=== PATIENT | male | born 2000 | race Caucasian/White ===

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

== ENCOUNTER 2019-01-27 13:36 | Emergency (ER) | payer OTHER ==
[2019-01-27] MEDS: ONDANSETRON (ODT) 4 MG TAB ODT (14:53)
== END 2019-01-27 15:20 | disposition home or self-care (01) ==
LOC: FTE 13:36
DX: A08.4 Viral intestinal infection, unspecified (principal)
CPT/HCPCS: 99283; Z7502